=== PATIENT | male | born 1985 | race Caucasian/White ===

== ENCOUNTER 2017-11-08 20:18 | Emergency (ER) | payer OTHER ==
[~2017-11-08] VITALS: Ht 182.9 cm; Wt 93.0 kg
[2017-11-08] MEDS ORDERED: CLARITIN-D 121 EACH (20:33)
[2017-11-08] MEDS ORDERED: CLOBETASOL PRO0.5 GM (20:34)
== END 2017-11-09 00:43 | disposition home or self-care (01) ==
LOC: ER 20:18
DX: K52.9 Noninfective gastroenteritis and colitis, unspecified (principal)